=== PATIENT | female | born 2000 | race Caucasian/White ===

== ENCOUNTER 2024-12-04 18:47 | Emergency (ER) | payer MEDICAID, SELFPAY ==
[2024-12-04 18:52] VITALS: BP 152/88; PULSE 100; RESP 20; TEMP 36.7; O2SAT 100; BMI 23.7
--- NOTE | 2024-12-04 18:55 | ED_ITS ---
HPI - General Adult General Chief complaint: Skin/Abscess/Foreign Body Stated complaint: Boil in armpit Time Seen by Provider: 12/04/24 18:55 Source: patient, RN notes reviewed and old records reviewed Mode of arrival: ambulatory Limitations: no limitations History of Present Illness ED Provider: Tyrel HPI narrative: 24-year-old female presents for evaluation of ?an abscess in my left armpit. The patient reports that she gets recurrent boils/abscesses in his area. She reports this is the 3rd time in the last 12 months. She reports that she has required drainage twice in the past She does not feel that she needs drainage at this time The area is red, swollen and painful and ?it occasionally drains pus. ? Related Data Previous Rx's ?Medication ?Instructions ?Recorded cephalexin 500 mg tablet 500 mg PO QID #28 tabs 12/04/24 Allergies Allergy/AdvReac Type Severity Reaction Status Date / Time amoxicillin Allergy Nausea Verified 12/04/24 18:56 doxycycline Allergy Nausea Verified 12/04/24 18:56 Review of Systems Constitutional: Constitutional: Denies body ache(s), Denies chills and Denies fever(s) Eyes: Eyes: Denies blurry vision ENT: Denies vertigo and Denies dizziness Cardiovascular: Cardiovascular: Denies chest pain and Denies dyspnea Respiratory: Respiratory: Denies cough and Denies dyspnea Integumentary/Breasts: Skin/Breast: Reports erythema, Reports skin pain and Reports skin swelling Neurologic: Denies vertigo and Denies dizziness PMFSH Social History Social History Advance Directives: No Advance Directives Information Provided: No Do you have a plan to hurt others: No Plan Physical Exam ED Vital Signs: Vital Signs - 24 hr 12/04/24 18:52 12/04/24 19:03 Temperature 98.0 F 98.0 F Pulse Rate 100 100 Respiratory Rate 20 20 Blood Pressure 152/88 H 152/88 H Pulse Oximetry 100 100 Oxygen Delivery Method Room Air Room Air BMI result Body Mass Index 23.7 Const General: healthy appearing, comfortable, no acute distress, alert and awake Nutritional Appearance: well nourished Orientation/consciousness: patient oriented x3 HENMT Head: Yes normocephalic and Yes atraumatic Eyes Eyelids: Yes eyelids normal Conjunctivae: conjunctivae normal Sclerae: sclerae normal Corneas: corneas normal Pupils: Equal, round and reactive pupils present EOM: EOMs intact bilaterally Neck Neck: Yes full ROM Resp Effort & Inspection: normal respiratory effort, able to speak in complete sentences and not labored Skin Other: Patient has an approximately 3 x 2 cm area of edema and induration to the left axilla with scar tissue. There is no significant erythema, no drainage. No fluctuance. General skin exam: elasticity normal Neuro General: patient oriented x3 Cranial nerves: Yes Equal, round and reactive pupils present and Yes Bilaterally intact EOM present Cognition (Neuro): normal cognition Extrem Other: Moving all extremities well without any obvious deformities Medical Decision Making Medical Decision Making MDM Narrative: Patient reports recurrent abscesses same area, she possibly has hidradenitis suppurativa. However she appears to have a mild early abscess currently. There is no indication for incision and drainage at this time. We will refer the patient to General surgery given the recurrent abscesses. We will discharge her with cephalexin and warm compresses Differential Diagnosis Differential Diagnoses: The differential diagnosis associated with the presentation includes Abscess Cellulitis Phlegmon Hidradenitis Discharge Plan Discharge Clinical Impression: Abscess of skin or subcutaneous tissue Patient Disposition: Home, Self-Care Instructions: Abscess (ED) Additional Instructions: Take cephalexin 4 times daily for the next week. Apply warm compresses several times daily. I recommend that you follow-up with general surgery, Dr. Martínez for recurrent abscess Return for new or worsening symptoms, especially if you develop fevers or worsening pain Prescriptions: New cephalexin 500 mg tablet 500 mg PO QID Qty: 28 0RF Referrals: Michael Martínez MD [Physician] - (recurrent abscess, axilla) Interventions: ED Discharge Assessment Last Done: 12/04/24 19:03 Discharge Date/Time: 12/04/24 19:03 Print Language: Kinyarwanda
[2024-12-04 19:03] VITALS: BP 152/88; PULSE 100; RESP 20; TEMP 36.7; O2SAT 100
== END 2024-12-04 19:03 | disposition home or self-care (01) ==
PROVIDERS: Emergency Provider Emergency Medicine Emergency Medical Services
DX: L02.412 Cutaneous abscess of left axilla (principal)
CPT/HCPCS: 99282; 99283

== ENCOUNTER 2024-12-21 09:48 | Outpatient (AMB) | payer MEDICAID, SELFPAY ==
--- NOTE | 2024-12-21 09:49 | A.OFFVIS_ITS ---
Vital Signs 12/21/24 09:57 Height 5 ft 2 in Weight 135 lb BMI 24.7 BP 121/80 Blood Pressure Location Rt brachial Position Sitting Pulse 79 Intake Visit Reasons: Boil in armpit Intake Note: Patient seen at [facility] Emergency department on 12-04-24 for abscess on Lt axilla. Reports improvement after completing 7d Cephalexin course. Mother w/ hx of HS. Patient c/o: starting to fill up again. Painful, redness, hot to touch. Fermenter Helper Required: No Accompanied by: Self / Same As Patient Allergies amoxicillin Allergy (Verified 12/21/24 09:54) Nausea doxycycline Allergy (Verified 12/21/24 09:54) Nausea HPI Comments Details: Patient with a history of hidradenitis suppurativa involving the left axilla pr esents here because of the longstanding issues regarding this. She has had multiple I and D's of the left axilla for several infections in the past. She would like to have this area excised. Chart was reviewed and patient evaluated. Incidentally the patient was mother also suffers from the same ailment. [facility] Surgical History (Updated 12/21/24 @ 10:09 by Travis Hernandez MD) History of kidney surgery Social History (Updated 12/21/24 @ 09:57 by BALTA Anderson) Cigarettes Per Day: 2 Physical Exam Vital Signs: Last Vital Signs Pulse 79 12/21/24 09:57 BP 121/80 12/21/24 09:57 BMI result Body Mass Index 24.7 Chest Other: Chest breath sounds bilaterally, HS 1 in 2. Patient was multiple tattoos. Multiple piercings. GI Other: Abdomen is soft, benign Extrem Other: Patient was significant findings of hidradenitis suppurativa involving the left axilla. Significant scarring and cicatrization from prior inflammatory episodes. Right axilla within normal limits. Assessment & Plan Assessment & Plan (1) Suppurative hidradenitis: Code(s): L73.2 - Hidradenitis suppurativa Category: Surgical Plan Risks, benefits, alternatives of excision of hidradenitis suppurativa left axilla were reviewed with the patient and included but not limited to bleeding, infection, recurrence, numbness, pain, scarring, seroma formation, wound dehiscence and the patient wishes to proceed. She may need to wear a sling for the 1st few weeks postoperatively as well. All questions answered. Arrangements were made for this on a day which is convenient for her. Coding Level of Care Code New Pt Level 5 (17364) Diagnoses Suppurative hidradenitis L73.2
[2024-12-21 09:57] VITALS: BP 121/80; PULSE 79; BMI 24.7
--- OUTSIDE RECORDS SUMMARY | 2024-12-21 10:58 | XMS_ITS | Clinical Summary ---
Author Organization [facility] Address [address] [place] [address] Phone Care Team Providers Care Opera Singer Name Role Phone Unavailable Primary Care Provider Unavailabl e Allergies No known active allergies Medications polyethylene glycol (MIRALAX) powderIndication s:Slow transit constipation Take 17 g by mouth daily. Stir and dissolve powder into 4 to 8 ounces of beverage and then drink. 500 g 2 8 Active Additional Information Patient not taking.Reported on 08/14/2018 LILLOW 0.15-30 MG-MCG per tabletIndication s:Acne, unspecified acne type TAKE 1 TABLET BY MOUTH EVERY DAY 84 tablet 3 0 Active Active Problems Problem Noted Date Diagnosed Date History of vesicoureteral reflux 08/19/2019 Overview (08/19/2019): Stents as younger child Slow transit constipation 04/04/2018 Anxiety 04/04/2018 Depression 04/04/2018 Weight loss, unintentional 04/04/2018 Cyst of skin 04/04/2018 Immunizations Immunization Administration Dates Next Due DTaP 5 02/16/2003, 0,1999,05/09,1999 HPV, Quadrivalent 11/03/2014,07/31/2013,09/20/19 12 Hep A, Adult 04/04/2018 Hep A, ped/adol 10/01/2016 Hep B, ped/adol 1999,1999,1999 Hib (PRP-T) 04/30/2000, 9,1999,03/07 IPV 02/16/2003, 0,1999,03/09 Influenza Split 06/17/2013,08/27/2012,09/20/2011 Influenza, injectable, quadrivalent 08/13/2014 Influenza, injectable, quadr ivalent, preservative free 08/19/2019 Influenza, intranasal, quadrivalent 09/15/2015 MMR 02/16/2003,01/04/2000 Meningococcal Conj (Menactra) MCV4P 10/01/2016,0 09/20/2011 Pneumococcal Conjugate 07/30/2000,04/30/2000 Tdap 09/20/2011 Varicella 09/20/2011,01/04/2000 Family History Medical History Relation Name Comments Depression Mother Segun Lipscomb Diabetes Mother Segun Lipscomb Hyperlipidemia Mother Segun Lipscomb Relation Name Status Comments Brother 1 Alive Brother: Alive and well, Alive and well, Alive and well Brother 2 Alive Brother: Alive and well, Alive and well, Alive and well Brother 3 Alive Brother: Alive and well, Alive and well, Alive and well Father Father: , Nicki r - Mother Segun Lipscomb Alive Other No family histo ry of *Thrombophilia, No family history of *Heart Disease, Family history of *Dental caries, No family history of *CVA/Stroke, Family history of *Sudden /HI under 55, Family history of Hyperlipidemia Social History Tobacco Use Types Packs/Day Years Used Date Smoking Tobacco: Never Smokeless Tobacco: Never Comments:Never smoker Alcohol Use Standard Drinks/Week Comments No 0 (1 standard drink = 0.6 oz pur e alcohol) Hunger/Food Answer Date Recorded No 06/04/2020 Stable Housing Answer Date Recorded No 06/04/2020 Transportation Concerns Answer Date Rec orded No 06/04/2020 Hazards in Home Answer Date Recorded No 07/23/2020 Financing Utilities Answer Date Recorde d No 07/23/2020 Safety at Home Answer Date Recorded No 07/23/2020 Outside Support Answer Date Recorded No 07/23/2020 Understanding Health Concerns Answer Da te Recorded No 07/23/2020 Financing Health Concerns Answer Date R ecorded No 07/23/2020 Missing School or Work Answer Date Sharan rded No 07/23/2020 Comments No Sex and Gender Information Value Date Recorded Sex Assigned at Not on file Legal Sex Female 5:23 PM EDT Gender Identity Not on file Sexual Orientation Bisexual 08/19/2019 2: 15 PM EST Last Filed Vital Signs Vital Sign Reading Time Taken Comments Blood Pressure 122/74 08/19/2019 2:24 PM EST Pulse 95 08/19/2019 1:24 PM EST Temperature 36.7 ??C (98 ??F) 08/14/2018 5:10 PM EST Respiratory Rate - - Oxygen Saturation 98% 06/24/2013 12: 00 AM EDT Inhaled Oxygen Concentration - - Weight 53.4 kg (117 lb 12.8 oz) 08/19/2019 1:24 PM EST Height 159.4 cm (5' 2.75 ) 08/19/2019 1:24 PM ES T Body Mass Index 21.03 08/19/2019 1:24 PM EST Plan of Treatment Health Maintenance Due Date Last Done Comments DTaP,Tdap,and Td Vaccines (7 - Td or Tdap) 09/20/2021 09/20/2011, 02/16/2003, 07/30/2000, Additional history exists Influenza Vaccines (#1) 2024 08/19/20 19, 09/15/2015, 08/13/2014, Additional history exists COVID-19 Vaccine ( season) 2024 Hepatitis B Vaccines Completed 1999, 1999, 1999 HIB Vaccines Completed 04/30/2000, 06/10, 1999, Additional history exists Pneumococcal Vaccine Completed 07/30/2000, 04/30/20 00 IPV Vaccines Completed 02/16/2003, 07/11, 1999, Additional history exists MMR Vaccines Completed 02/16/2003, 01/04/2000 Varicella Vaccines Completed 09/20/2011, 01/04/2000 HPV Vaccines Completed 11/03/2014, 07/11, 09/20/2011 Meningococcal Vaccine Completed 10/01/2016, 012 Hepatitis A Vaccines Completed 04/04/2018, 10/01/19 17 Men B Vaccine Aged Out No longer elig ible based on patient's age to complete this topic Procedures * Due to [place] state law, this organization might not be sharing sensitive test results. Procedure Name Priority Date/Time Associated Diagnosis Comments CHLAMYDIA AND GONORRHEA, AMPLIFIED Routine 08/19/2019 1:36 PM EST Screening examination for bacterial and spirochetal disease from Last 3 Months or Most Recently Relevant to Health Maintenance Results * Due to [place] state law, this organization might not be sharing sensitive test results. * Chlamydia and Gonorrhoea, Amplified (08/19/2019 1:36 PM EST) Chlamydia Trachomatis, DNA Probe NEGATIVE (NEG) [facility] Comment: No Chlamydia Trachomatis RNA detected in this patient's sample ? (REFERENCE RANGE/NORMAL VALUE: NOT DETECTED) ? Note: This test uses procurement cost coordinator- mediated amplification method to detect rRNA from C. Trachomatis URINE GC AMP PROBE NEGATIVE (NEG) [facility] Comment: No Neisseria Gonorrhoeae RNA detected in this patient's sample ? (REFERENCE RANGE/NORMAL VALUE: NOT DETECTED) ? NOTE: This test uses procurement cost coordinator-mediated amplification method to detect rRNA from N.Gonorrhoeae. A negative result does not preclude infection. In the case of a negative urine result, testing of an endocervical(female) or urethral (male) specimen is recommended if there is high clinical suspicion of infection. Due to very high sensitivity of Nucleic Acid Amplification Test, false positive results may occur. Therefore, specimen handling is extremely important. In patients in whom the disease is unlikely, additional sample for testing should be considered after an initial positive result. The performance characteristics of this test have not been evaluated in children. The Aptima Combo2 assay is not intended for the evaluation of suspected sexual abuse or for other medico-legal indications. The ordering provider should assess if the patient had consensual sex without risk of sexual abuse. Consult the [facility] if needed. Contact phone number . Therapeutic failure or success cannot be determined with the Aptima Combo2 assay since nucleic acid may persist following appropriate antimicrobial therapy. The Centers for Disease Control and Prevention (CDC) recommends confirmatory retesting using culture or a different nucleic acid amplification test when positive results occur, if indicated. Testing performed or reported by [facility], a Service of [facility], [address], [place] [address] Giovanni Ibanez MD, Stores Clerk Urine 08/19/2019 1:36 PM EST 08/19/2019 10:33 PM EST us Noemi Mayo NP LAB MICROBIOLOGY - GENERAL ORDER ALISSA Final Result [facility] from Last 3 Months or Most Recently Relevant to Health Maintenance Insurance [facility] NON PCC
--- OUTSIDE RECORDS SUMMARY | 2024-12-21 10:58 | XMS_ITS | Encounter Summary ---
Author Organization [facility] Address [address] [place] [address] Phone Care Team Providers Care Continuous Mining Operator Name Role Phone Shaylee Aiken MD Primary Care Provider Encounter Details Date Type Department Care Team (Late st Contact Info) Description 02/07/2017 Documentation [facility] Family Medicine [address] [place] [address] Family Medicine, Physician [address], [place] [id number] Social History Tobacco Use Types Packs/Day Years Used Date Smoking Tobacco: Never Comments:Never smoker Comments Unknown Sex and Gender Information Value Date Recorded Sex Assigned at Not on file Legal Sex Female 5:23 PM EDT Gender Identity Not on file Sexual Orientation Bisexual 08/19/2019 2: 15 PM EST documented as of this encounter Plan of Treatment Not on file documented as of this encounter Visit Diagnoses Not on filedocumented in this encounter Care Teams Continuous Mining Operator Relationship Specialty Start Date End Date Shaylee Aiken MD [address] [place] [address] [place] [address] PCP - General Pediatrics 09/30/20 10/06/20 documented as of this encounter
--- OUTSIDE RECORDS SUMMARY | 2024-12-21 10:58 | XMS_ITS | Encounter Summary ---
Author Organization [facility] Address [address] [place] [address] Phone Care Team Providers Care Radio Television Announcer Name Role Phone Shaylee Aiken MD Primary Care Provider Encounter Details Date Type Department Care Team (Late st Contact Info) Description 04/13/2014 Documentation [facility] Family Medicine [address] [place] [address] Family Medicine, Physician [address] [id number] Social History Tobacco Use Types Packs/Day Years Used Date Smoking Tobacco: Never Assessed Comments Unknown Sex and Gender Information Value Date Recorded Sex Assigned at Not on file Legal Sex Female 5:23 PM EDT Gender Identity Not on file Sexual Orientation Bisexual 08/19/2019 2: 15 PM EST documented as of this encounter Plan of Treatment Not on file documented as of this encounter Visit Diagnoses Not on filedocumented in this encounter Care Teams Radio Television Announcer Relationship Specialty Start Date End Date Shaylee Aiken MD [address] [place] [address] [place] [address] PCP - General Pediatrics 09/30/20 10/06/20 documented as of this encounter
--- OUTSIDE RECORDS SUMMARY | 2024-12-21 10:58 | XMS_ITS | Encounter Summary ---
Author Organization [facility] Address [address] [place] [address] Phone Care Team Providers Care Scheme Technician Name Role Phone Shaylee Aiken MD Primary Care Provider [phone] Reason for Visit * Reason Comments Med Refill Encounter Details Date Type Department Care Team (Late st Contact Info) Description 09/22/2019 Refill [facility] [address] [place] [address] Noemi Mayo NP [address] [facility] [address] [place] [address] Acne, unspecified acne type Social History Tobacco Use Types Packs/Day Years Used Date Smoking Tobacco: Never Smokeless Tobacco: Never Comments:Never smoker Alcohol Use Standard Drinks/Week Comments No 0 (1 standard drink = 0.6 oz pur e alcohol) Hunger/Food Answer Date Recorded No 08/19/2019 Stable Housing Answer Date Recorded No 09/12/2019 Transportation Concerns Answer Date Rec orded No 08/19/2019 Hazards in Home Answer Date Recorded No 08/19/2019 Financing Utilities Answer Date Recorde d No 08/19/2019 Safety at Home Answer Date Recorded No 08/19/2019 Outside Support Answer Date Recorded No 08/19/2019 Understanding Health Concerns Answer Da te Recorded No 08/19/2019 Financing Health Concerns Answer Date R ecorded No 08/19/2019 Missing School or Work Answer Date Sharan rded No 08/19/2019 Comments No Sex and Gender Information Value Date Recorded Sex Assigned at Not on file Legal Sex Female 5:23 PM EDT Gender Identity Not on file Sexual Orientation Bisexual 08/19/2019 2: 15 PM EST documented as of this encounter Miscellaneous Notes * Telephone Encounter - Annetta Bermeo LPN - 09/22/2019 11:28 AM EST Pharm fax refill request OCP, the current Rx is only a 3 mos supply. EH documented in this encounter Plan of Treatment Not on file documented as of this encounter Visit Diagnoses Diagnosis Acne, unspecified acne type documented in this encounter Care Teams Scheme Technician Relationship Specialty Start Date End Date Shaylee Aiken MD [address] [place] [address] YANETH Mattson [address] PCP - General Pediatrics 09/30/20 10/06/20 documented as of this encounter
--- OUTSIDE RECORDS SUMMARY | 2024-12-21 10:58 | XMS_ITS ---
Author Name [facility] Organization Unknown History of Medication Use Medication Directions Dispensed Refills Start Date End Date Stat us lidocaine (XYLOCAINE) 2 % solution Take 5 mL by mouth 4 (four) times a day as needed for mild pain. 04/06/2024 04/12/2024 active doxycycline (MONODOX) 100 MG capsule Take 1 capsule (100 mg total) by mouth 2 (two) times a day. 02/04/2024 02/12/2024 active Problems Problem Status Onset Date Problem Type Date of Resoluti on Source Viral URI active EncounterDiagnosisAct [facility] Pharyngitis, unspecified etiology active EncounterDiagnosisAct [facility] Wound check, abscess active EncounterDiagnosisA ct [facility] Encounters Encounter Type Encounter Reason Primary Diagnosis Location Date Ambulatory Acute pharyngitis, unspecified Acute pharyngitis, unspecified [facility] 04/06/2024 Ambulatory Cyst/Abscess Cyst/Abscess [facility] 02/04/2024 Care Team Organization Name Specialty Phone Email Start Date End Da te [facility] PCP Technical Operator 02/05/2024 11/25/2024 [facility] NO PCP Primary Care 02/04/2024 [facility] NO PROVIDER Primary Care 09/29/2023 [facility] 023 [facility] 023 05/03/2023
--- OUTSIDE RECORDS SUMMARY | 2024-12-21 10:58 | XMS_ITS | Clinical Summary ---
Author Organization [facility] Address [address] [place] [address] Care Team Providers Care Microwave Engineer Name Role Phone Pcp, No Primary Care Provider Unavailabl e Allergies Active Allergy Reactions Criticality Noted Date Comments Amoxicillin Hives Medium 02/04/2024 Doxycycline Hives Medium 04/06/2024 Medications Medication Sig Dispensed Refills Start Date End Date Status fluticasone (FloNASE) 50 mcg/spray nasal sprayIndications:Katty l URI 1 spray into each nostril daily. 9 g 04/06/2024 Active lidocaine (XYLOCAINE) 2 % solutionIndications:V iral URI,Pharyngitis, unspecified etiology Take 5 mL by mouth 4 (four) times a day as needed for mild pain. 100 mL 04/06/2024 Active ibuprofen (MOTRIN) 600 MG tabletIndications:Pha ryngitis, unspecified etiology Take 1 tablet (600 mg total) by mouth 3 times daily (every 8 hours) as needed for mild pain. 30 tablet 04/06/2024 Active Active Problems No known active problems Social History Tobacco Use Types Packs/Day Years Used Date Smoking Tobacco: Some Days Cigarettes Smokeless Tobacco: Never Sex and Gender Information Value Date Recorded Sex Assigned at Not on file Gender Identity Not on file Sexual Orientation Not on file Last Filed Vital Signs Vital Sign Reading Time Taken Comments Blood Pressure 129/86 04/06/2024 11:09 AM EDT Pulse 100 04/06/2024 11:09 AM EDT Temperature 36.7 ??C (98 ??F) 04/06/2024 11:09 AM EDT Respiratory Rate 18 04/06/2024 11:09 AM EDT Oxygen Saturation 98% 04/06/2024 11:09 AM EDT Inhaled Oxygen Concentration - - Weight 54.4 kg (120 lb) 04/06/2024 11:09 AM EDT Height 160 cm (5' 3 ) 04/06/2024 11:09 AM EDT Body Mass Index 21.26 04/06/2024 11:09 AM EDT Plan of Treatment Health Maintenance Due Date Last Done Comments Hepatitis C Virus Screening 1999 HIV Screening 01/03/2012 HPV Vaccines (1 - 3-dose series) 2014 DTaP/Tdap/Td Vaccines (1 - Tdap) 2018 Hepatitis B Vaccines (1 of 3 - 19+ 3-dose series) 2018 Pneumococcal Vaccine: Pediat vandana (0-5 Years) and At-Risk Patients (6 to 49 Years) (1 of 2 - PCV) 2018 Pap Smear (Ages 21-65) 01/03/2020 Influenza Vaccine 04/09/2024 08/19/2019, , 08/13/2014, Additional history exists COVID-19 Vaccine (2023-2 5 season) 2024 01/30/2021, 01/07/2021 Care Teams Microwave Engineer Relationship Specialty Start Date End Date Pcp, No PCP - General General Medicine 09/09/19
--- OUTSIDE RECORDS SUMMARY | 2024-12-21 10:58 | XMS_ITS | Encounter Summary ---
Author Organization [facility] Address [address] [place] [address] Care Team Providers Care Shuttle Inspector Name Role Phone Pcp, No Primary Care Provider Unavailabl e Encounter Details Date Type Department Care Team ([facility] Contact Info) Description 02/07/2024 Telephone [facility] [address] [place] [address] Alon Etienne MD [address] [place] [phone] Social History Tobacco Use Types Packs/Day Years Used Date Smoking Tobacco: Some Days Cigarettes Smokeless Tobacco: Never Sex and Gender Information Value Date Recorded Sex Assigned at Not on file Gender Identity Not on file Sexual Orientation Not on file documented as of this encounter Plan of Treatment Not on file documented as of this encounter Visit Diagnoses Not on filedocumented in this encounter Care Teams Shuttle Inspector Relationship Specialty Start Date End Date Pcp, No PCP - General General Medicine 09/09/19 documented as of this encounter
--- OUTSIDE RECORDS SUMMARY | 2024-12-21 10:58 | XMS_ITS | Encounter Summary ---
Author Organization [facility] Address [address] [place] [id number] Phone Care Team Providers Care Data Warehouse Administrator Name Role Phone Shaylee Aiken MD Primary Care Provider [phone] Reason for Visit * Reason Comments Med Refill Encounter Details Date Type Department Care Team (Late st Contact Info) Description 04/02/2019 Refill [facility] [place] [address] [place] [address] Noemi Mayo NP [address] [facility] [address] [place] [address] Acne, unspecified acne type Social History Tobacco Use Types Packs/Day Years Used Date Smoking Tobacco: Never Smokeless Tobacco: Never Comments:Never smoker Alcohol Use Standard Drinks/Week Comments No 0 (1 standard drink = 0.6 oz pur e alcohol) Comments No Sex and Gender Information Value Date Recorded Sex Assigned at Not on file Legal Sex Female 5:23 PM EDT Gender Identity Not on file Sexual Orientation Bisexual 08/19/2019 2: 15 PM EST documented as of this encounter Miscellaneous Notes * Telephone Encounter - Inés Michel NP - 04/02/2019 12:39 PM EDT I will refill for 3 month supply but needs to see Noemi back for PE and follow up prior to further refills. JMT * Telephone Encounter - Sierra Concepcion LPN - 04/02/2019 7:18 AM EDT Pt of SO-Refill request for OCP's. Last PE 04/04/18/WARNER documented in this encounter Plan of Treatment Not on file documented as of this encounter Visit Diagnoses Diagnosis Acne, unspecified acne type documented in this encounter Care Teams Data Warehouse Administrator Relationship Specialty Start Date End Date Shaylee Aiken MD [address] [place] [address] YANETH Mattson [address] PCP - General Pediatrics 09/30/20 10/06/20 documented as of this encounter
--- OUTSIDE RECORDS SUMMARY | 2024-12-21 10:58 | XMS_ITS | Encounter Summary ---
Author Organization [facility] Address [address] [place] [address] Phone Care Team Providers Care Cross Tie Turner Name Role Phone Shaylee Aiken MD Primary Care Provider Encounter Details Date Type Department Care Team (Late st Contact Info) Description 04/25/2017 Conversion Encounter [facility] [place] [address] [place] [address] Social History Tobacco Use Types Packs/Day Years [...] on filedocumented in this encounter Care Teams Cross Tie Turner Relationship Specialty Start Date End Date Shaylee Aiken MD [address] [place] [address] PCP - General Pediatrics 09/30/20 10/06/20 documented as of this encounter
--- OUTSIDE RECORDS SUMMARY | 2024-12-21 10:58 | XMS_ITS | Encounter Summary ---
Author Organization [facility] Address [address] [place] [address] Phone Care Team Providers Care Campaign Management Specialist Name Role Phone Shaylee Aiken MD Primary Care Provider Encounter Details Date Type Department Care Team (Late st Contact Info) Description 02/07/2017 Documentation [facility] [place] [facility] [address] [place] [address] Family Medicine, Physician [address] [place], [place] [id number] Social History Tobacco Use Types Packs/Day Years [...] on filedocumented in this encounter Care Teams Campaign Management Specialist Relationship Specialty Start Date End Date Shaylee Akien MD [address] [place] [address] [place] [id number] PCP - General Pediatrics 09/30/20 10/06/20 documented as of this encounter
== END 2024-12-21 10:00 | disposition home or self-care (01) ==
LOC: HO.HGS 09:49
PROVIDERS: Visit Provider Surgery
DX: L73.2 Hidradenitis suppurativa (principal)
CPT/HCPCS: 99204

== ENCOUNTER → 2024-12-21 09:48 | Outpatient (BNVA) | payer MEDICAID, SELFPAY | PROVIDERS: Visit Provider Surgery | DX: L73.2 Hidradenitis suppurativa (principal) | CPT/HCPCS: 99202 ==